=== PATIENT | female | born 1945 | race Caucasian/White ===

== ENCOUNTER 2017-02-06 21:48 | Emergency (ER) | payer OTHER, BC ==
[2017-02-06 22:05] VITALS: BP 168/108; PULSE 79; TEMP 98; BMI 19.5
[2017-02-06] MEDS ORDERED: SODIUM CHLORIDE 1,000 ML IV ONE (22:19)
--- NOTE | 2017-02-06 22:19 | PDOC ---
History of Present Illness - General Chief Complaint: Pain, Acute Stated Complaint: ABDOMINAL PAIN Time Seen by Provider: 02/06/17 22:06 History Source: Patient Exam Limitations: No Limitations - History of Present Illness Initial Comments: 02/06/17 22:50 This is an elderly 71-year-old female who comes in complaining of severe crampy abdominal pain. Patient said pain began approximately 30 this evening. By the time I saw patient said the pain has nearly resolved here in the emergency room. Otherwise patient denied any fever, chills, history of similar pain in the past. Patient denied any nausea, vomiting, diarrhea. Patient did have a normal bowel movement earlier in the day. Patient is otherwise healthy but does have a prior surgical history of appendectomy. PAST MEDICAL HISTORY: no significant history PAST SURGICAL HISTORY: no significant history FAMILY HISTORY: no pertinant history SOCIAL HISTORY: Pt lives with family and is employed. MEDICATIONS: reviewed ALLERGIES: As per nursing notes Review of Systems General: No fevers or chills, no weakness, no weight loss HEENT: No change in vision. No sore throat,. No ear pain CardioVascular: No chest pain or shortness of breath Respiratory:No cough, or wheezing. Gastrointestinal: no nausea, vomitting, diarrhea or constipation, No rectal bleeding Genitourinary: No dysuria, hematuria, or frequency Musculoskeletal: No joint or muscle pain or swelling Neurologic: No headache, vertigo, dizziness or loss of consciousness Psychiatric: nor depression Skin: No rashes or easy bruising Endocrine: no increased thirst or abnormal weight change Allergic: no skin or latex allergy All other systems reviewed and normal Exam: General: Well-nourished well-developed individual, no acute distress HEENT: Throat: Normal, tonsils normal, no erythema or exudate Neck: Supple, no meningeal signs, no lymphadenopathy Eyes::Pupils equal reactive and round, extraocular motion intact Chest: Nontender to palpation Cardiac: S1-S2 normal, regular rate and rhythm, no murmurs rubs or gallops Respiratory: Lungs clear to auscultation bilateral Abdomen: Soft, nondistended, increased bowel sounds, mildly tender to palpation across lower abdomen no guarding or rebound Extremities: Warm, dry, no cyanosis, clubbing, or edema Skin: No rashes Neuro: Alert and oriented x3, nonfocal exam, grossly intact, normal gait Psych: Normal mood and affect 02/06/17 23:12 Assessment and plan: This is a 71-year-old female comes in complaining of crampy abdominal pain. Patient had increased bowel sounds with some very mild tenderness across her lower abdomen otherwise normal. There was no back or flank or CVA tenderness. Patient had a workup in the emergency room which included a normal CBC with normal white count and differential. The chemistry showed a potassium of 3.3 patient was advised to increase her potassium by eating a banana a day for the next week. Her glucose was mildly elevated however was not a fasting glucose. Otherwise her chemistries were unremarkable. Patient was given a copies of her lab work. Patient's pain had completely resolved by the time her workup was complete. Patient's urinalysis did show 1+ blood and I did discuss with her the possibility of a kidney stone. However patient's symptoms had completely resolved and she did not want any further investigation including a CAT scan at this time. I did advise patient that if she developed a fever, the pain came back, or for any reason she was concerned that she should come back and we would get a CAT scan. Patient discharged home will follow-up with her primary care on Wednesday if she still has any symptoms. Past History - Past Medical History Allergies/Adverse Reactions: Allergies Allergy/AdvReac Type Severity Reaction Status Date / Time No Known Allergies Allergy Verified 01/27/15 13:26 Home Medications: Ambulatory Orders Crestor 01/27/15 Fish Oil 01/27/15 Multivit ([facility] Formulary) 01/27/15 Vitamin D 01/27/15 GI Disorders: Yes (DIVERTICULOSIS) HTN: Yes Hypercholesterolemia: Yes - Surgical History Appendectomy: Yes - Psycho/Social/Smoking Cessation Hx Anxiety: No Suicidal Ideation: No Smoking History: Former smoker Have you smoked in the past 12 months: No Information on smoking cessation initiated: No Hx Alcohol Use: No Substance Use Type: None *Physical Exam - Vital Signs Last Vital Signs Temp Pulse Resp BP Pulse Ox 98 F 79 16 168/108 98 02/06/17 22:03 02/06/17 22:03 02/06/17 22:03 02/06/17 22:03 02/06/17 22:03 ED Treatment Course - LABORATORY CBC & Chemistry Diagram: 02/06/17 22:34 02/06/17 22:34 *DC/Admit/Observation/Transfer Diagnosis at time of Disposition: Abdominal pain Qualifiers: Abdominal location: lower abdomen, unspecified Qualified Code(s): R10.30 - Lower abdominal pain, unspecified - Discharge Dispostion Disposition: HOME Condition at time of disposition: Stable Admit: No - Patient Instructions Additional Instructions: If you develop a fever, the pain returns, you develop vomiting with the pain or R concern for any reason you should come back to the emergency room and we will get a CAT scan. Return to the emergency department immediately with ANY new, persistent or worsening symptoms. Continue any medications as previously prescribed by your physician. You should follow up with your primary doctor as soon as possible regarding today's emergency department visit. . Please make sure your doctor reviews the results of your emergency evaluation. Thank you for coming to the Emergency Department today for your care. It was a pleasure to see you today. Please note that your evaluation is INCOMPLETE until you follow-up with your doctor.
[2017-02-06] MEDS ORDERED: HYOSCYAMINE SULFATE 0.125 MG *ODT PO ONE (22:20)
[2017-02-06] MEDS ORDERED: HYOSCYAMINE SULFATE 0.125 MG *ODT ONE (22:26)
[2017-02-06 22:45] LABS: BASOPHIL 0.6 % (0-2.0); EOSINOPHIL 2.3 % (0-4.5); MCH 31.7 pg (25.7-33.7); MCHC 34.2 g/dl (32.0-36.0); MEAN CELL VOLUME 92.7 fl (80-96); MEAN PLT VOLUME 7.7 fl (7.5-11.1); NEUTROPHILS 53.3 % (42.8-82.8); PLATELET COUNT 214 K/MM3 (134-434); RDW 13.1 % (11.6-15.6); WHITE BLOOD COUNT 5.4 K/mm3 (4.0-10.8)
[2017-02-06 22:46] LABS: PH,URINE 7.5 (4.5-8); URINE APPEARANCE Clear; URINE BILIRUBIN Negative (NEGATIVE); URINE BLOOD 1+ (NEGATIVE); URINE GLUCOSE (UA) Negative (NEGATIVE); URINE KETONE Negative (NEGATIVE); URINE LEUK ESTERASE Negative (NEGATIVE); URINE NITRITE Negative (NEGATIVE); URINE PROTEIN Negative (NEGATIVE); URINE UROBILINOGEN 0.2 (0.2-1.0)
[2017-02-06 22:47] LABS: URINE COLOR YELLOW
[2017-02-06 22:57] LABS: ALBUMIN 3.9 g/dl (3.5-5.0); ALK PHOS 58 U/L (32-92); ANION GAP 6 (8-16); BILIRUBIN,TOTAL 0.9 mg/dl (0.2-1.0); CALCIUM 9.3 mg/dl (8.4-10.2); CO2 29 mmol/L (22-28); CREATININE 0.6 mg/dl (0.6-1.3); GLUCOSE,RANDOM 132 mg/dl (74-106); SGOT/AST 30 U/L (10-42); SGPT/ALT 27 U/L (10-40); TOT PROT 6.3 g/dl (6.4-8.3)
== END 2017-02-06 23:19 | disposition home or self-care (01) ==
LOC: FER 21:48
DX: R10.30 Lower abdominal pain, unspecified (principal); I10 Essential (primary) hypertension; Z87.891 Personal history of nicotine dependence
CPT/HCPCS: 36415; 80053; 81003; 83690; 85025; 99283-25

== ENCOUNTER 2017-03-13 17:17 | Emergency (ER) | payer OTHER, BC ==
[2017-03-13] MEDS ORDERED: ACETAMINOPHEN 325 MG TABLET (FP) PO ONE (17:30)
--- NOTE | 2017-03-13 17:30 | PDOC ---
History of Present Illness - General History Source: Patient Exam Limitations: No Limitations - History of Present Illness Initial Comments: 03/13/17 17:34 Patient is a 71 year old female, right hand dominant, with a pmhx of HLD and HTN who presents to the ED with right wrist pain. Patient states that she was gardening as she slipped on a wet rock and fell breaking her fall with her right hand. She now reports right wrist and hand pain as well as difficulty to move the hand. Patient denies any LOC, head trauma or bony deformity. Patient cannot take take NSAIDs due to stomach problems. <Linda Barrera - Last Filed: 03/13/17 17:34> - General History Source: Patient, Old Records Exam Limitations: No Limitations <Enedina Castelan - Last Filed: 03/13/17 18:21> - General Chief Complaint: Injury Stated Complaint: RIGHT WRIST PAIN Time Seen by Provider: 03/13/17 17:22 Past History <Linda Barrera - Last Filed: 03/13/17 17:34> - Past Medical History GI Disorders: Yes (DIVERTICULOSIS) HTN: Yes Hypercholesterolemia: Yes - Surgical History Appendectomy: Yes - Psycho/Social/Smoking Cessation Hx Anxiety: No Suicidal Ideation: No Smoking History: Former smoker Have you smoked in the past 12 months: No Hx Alcohol Use: No Substance Use Type: None <Enedina Castelan - Last Filed: 03/13/17 18:21> - Past Medical History Allergies/Adverse Reactions: Allergies Allergy/AdvReac Type Severity Reaction Status Date / Time No Known Allergies Allergy Verified 03/13/17 17:23 Home Medications: Ambulatory Orders Cholecalciferol (Vitamin D3) [Vitamin D3] 0 unit PO DAILY 03/13/17 Glucosamine Sulfate Dipot Chlr [Glucosamine] 0 mg PO DAILY 03/13/17 Hydrochlorothiazide [Hctz -] 0.5 tab PO DAILY 03/13/17 Multivitamin [Poly-Vitamin] 1 each PO DAILY 03/13/17 [place]-3 Fatty Acids/Fish Oil [Fish Oil 1,000 mg Softgel] 1 each PO DAILY Rosuvastatin Calcium [Crestor] 10 mg PO ASDIR 03/13/17 Ubidecarenone [Coq10] 0 mg PO ASDIR 03/13/17 Review of Systems - Review of Systems Able to Perform ROS?: Yes Comments:: 03/13/17 17:34 CONSTITUTIONAL: Absent: fever, no chills, no fatigue EYES: Absent: visual changes ENT: Absent: ear pain, no sore throat CARDIOVASCULAR: Absent: chest pain, no palpitations RESPIRATORY: Absent: cough, no SOB GI: Absent: abdominal pain, no nausea, no vomiting, no constipation, no diarrhea GENITOURINARY: Absent: dysuria, no frequency, no hematuria MUSCULOSKELETAL: Present: right wrist pain. Absent: back pain, no myalgia SKIN: Absent: rash <Linda Barrera - Last Filed: 03/13/17 17:34> *Physical Exam - Vital Signs Last Vital Signs Temp Pulse Resp BP Pulse Ox 98.3 F 82 18 162/97 100 03/13/17 17:18 03/13/17 17:18 03/13/17 17:18 03/13/17 17:18 03/13/17 17:18 - Physical Exam Comments: 03/13/17 17:35 GENERAL: Well-appearing, well-nourished. No apparent distress. HEENT: Normocephalic, atraumatic. PERRL, EOM intact. CARDIOVASCULAR: Normal S1, S2. Regular rate and rhythm. PULMONARY: Clear to auscultation bilaterally. ABDOMEN: Soft, non-distended, non-tender. EXTREMITIES: (+)Mild soft tissue swelling of the right wrist, Tenderness to palpation over the R radial head, ROM of the right wrist is limited to pain, Sensation is mildly decreased. Radial pulses +2. No gross deformities. SKIN: Warm, dry. No rash NEUROLOGICAL: No focal neurological deficits. <Linda Barrera - Last Filed: 03/13/17 17:34> Medical Decision Making - Medical Decision Making 03/13/17 17:29 71-year-old female with history of hypertension and high cholesterol presents the emergency department with right wrist and hand pain status post mechanical fall on an outstretched hand earlier today. Differential diagnosis includes but is not limited to: Fracture, dislocation, sprain, contusion. Plan: 1. Plain films of right hand and wrist 2. Pain management 3. Observe and reevaluate 03/13/17 18:18 Addendum: Plain films are negative for fracture, dislocation. Will discharge home. Arben wrap for comfort. Tylenol as needed for pain. Follow-up with primary care physician and return to the emergency department if symptoms persist, worsen, or new symptoms arise. <Enedina Castelan - Last Filed: 03/13/17 18:21> *DC/Admit/Observation/Transfer - Attestations Scribe Attestion: 03/13/17 17:37 Documentation prepared by KHURRAM Garrison, acting as medical malpractice paralegal for Enedina Castelan MD. <Linda Barrera - Last Filed: 03/13/17 17:34> - Discharge Dispostion Admit: No - Attestations Physician Attestion: 03/13/17 17:30 I, Dr. Enedina Castelan, attest that the scribes documentation that appears above has been prepared under my direction and personally reviewed by me in its entirety. I confirmed that the note above accurately reflects all work, treatment, procedures, and medical decision-making performed by me. <Enedina Castelan - Last Filed: 03/13/17 18:21> Diagnosis at time of Disposition: Sprain of left wrist - Discharge Dispostion Disposition: HOME Condition at time of disposition: Stable - Referrals Referrals: Catrachito Burris [Primary Care Provider] - - Patient Instructions Printed Discharge Instructions: How to Use a Sling Additional Instructions: You're being treated for a wrist sprain. You may take Tylenol 650-1000 mg as needed for pain every 4 hours. Follow-up with primary care physician and return to the emergency department if your symptoms persist, worsen, or new symptoms arise.
[2017-03-13 17:39] VITALS: BP 162/97; PULSE 82; TEMP 98.3; BMI 19.5
[2017-03-13] MEDS ORDERED: ACETAMINOPHEN 325 MG TABLET (FP) ONE (17:40)
== END 2017-03-13 18:28 | disposition home or self-care (01) ==
LOC: FER 17:17
DX: S63.502A Unspecified sprain of left wrist, initial encounter (principal); W01.0XXA Fall on same level from slipping, tripping and stumbling without subsequent striking against object, initial encounter; Y93.H2 Activity, gardening and landscaping; Y92.007 Garden or yard of unspecified non-institutional (private) residence as the place of occurrence of the external cause; E78.5 Hyperlipidemia, unspecified; I10 Essential (primary) hypertension; Z87.891 Personal history of nicotine dependence
CPT/HCPCS: 73110-TC-RT; 73130-TC-RT; 99282-25

== ENCOUNTER 2018-11-03 14:27 | Emergency (ER) | payer OTHER, BC ==
[2018-11-03 14:56] VITALS: TEMP 98; BMI 20.1
[2018-11-03 15:56] LABS: BASO % 0.4 % (0-2.0); EOS % 1.2 % (0-4.5); HEMATOCRIT 38.6 % (32.4-45.2); MCH 31.5 pg (25.7-33.7); MCHC 33.8 g/dl (32.0-36.0); MEAN CELL VOLUME 93.3 fl (80-96); MEAN PLT VOLUME 7.3 fl (7.5-11.1); MONO % 9.5 % (3.8-10.2); NEUT % 55.9 % (42.8-82.8); PLATELET COUNT 276 K/MM3 (134-434); RBC 4.13 M/mm3 (3.60-5.2); RDW 12.4 % (11.6-15.6); WHITE BLOOD COUNT 4.2 K/mm3 (4.0-10.8)
--- NOTE | 2018-11-03 16:00 | PDOC ---
Documentation entered by Radu Anguiano SCRIBE, acting as scribe for Maik Lu MD. Maik Lu MD: This documentation has been prepared by the Silvio aviles Nirvannie, SCRIBE, under my direction and personally reviewed by me in its entirety. I confirm that the documentation accurately reflects all work, treatment, procedures, and medical decision making performed by me. History of Present Illness - General Chief Complaint: Diarrhea Stated Complaint: DIARRHEA Time Seen by Provider: 11/03/18 14:51 History Source: Patient Exam Limitations: No Limitations - History of Present Illness Initial Comments: 11/03/18 15:27 The patient is a 73 year old female, with a significant past medical history of hypertension and hyperlipidemia, who presents to the emergency department with, generalized weakness and chest discomfort described as a fluttering sensation. As per patient, a week ago she went to see her GI doctor at [facility] for her chronic LQ pain at which time he prescribed her Levsin (taken multiple times in the past without abnormal side effects), she notes taking it for 1 day then began feeling a sensation of confusion, dry mouth, dizziness, and urinary retention. Patient went to see her doctor the following day at which time her medications were stopped and she received urinary catheterization (negative urinalysis). Approximately 5 days following this episode, she notes constipation for which she took 300mg Mg (OTC, taken multiple times in the past without abnormal side effects) that onset 3 days of 4-5 episodes of watery diarrhea concluding last night. She endorses seeing her PCPs partner yesterday for her symptoms, however, today she had a soft bowel movement with associated generalized weakness, lightheadedness, and fluttering chest discomfort prompting her arrival to the ED. She denies any focal weakness or focal changes in strength/sensation. She denies any blurred vision or changes in her speech. She denies recent fevers, chills, headache or dizziness. She denies recent nausea or vomiting. She denies recent dysuria, frequency, urgency or hematuria. She denies recent chest pain or shortness of breath. Allergies: NKDA Past surgical history: Appendectomy and rectal papilla removal. Social history: Quit smoking 35 years ago. Usually walks approximately 4 mi/d. Last visited to [facility] tech 2 months ago without any pertinent findings. Denies EtOH use and recreational drug use. Primary Care Physician: Dr. Kim Past History - Past Medical History Allergies/Adverse Reactions: Allergies Allergy/AdvReac Type Severity Reaction Status Date / Time No Known Allergies Allergy Verified 11/03/18 14:47 Home Medications: Ambulatory Orders Cholecalciferol (Vitamin D3) [Vitamin D3] 2,000 unit PO DAILY 03/13/17 Hydrochlorothiazide [Hctz -] 1 tab PO DAILY 03/13/17 [place]-3 Fatty Acids/Fish Oil [Fish Oil 1,000 mg Softgel] 1 each PO DAILY Rosuvastatin Calcium [Crestor] 10 mg PO TUTH 03/13/17 Hyoscyamine Odt [Levsin Odt -] 0.125 mg PO PRN 09/10/17 Glucosam/Chond-Msm1/C/Tanner/Bor [Wfcbhsj-Qdpsx-WSV Complex Cplt] 1 each PO DAILY 11/03/18 Multivit-Min/Iron/Folic/Lutein [Centrum Silver Women Tablet] 1 each PO DAILY COPD: No GI Disorders: Yes (DIVERTICULOSIS) HTN: Yes Hypercholesterolemia: Yes - Surgical History Appendectomy: Yes - Suicide/Smoking/Psychosocial Hx Smoking History: Never smoked Have you smoked in the past 12 months: No Hx Alcohol Use: No Drug/Substance Use Hx: No Substance Use Type: None Review of Systems - Review of Systems Able to Perform ROS?: Yes Comments:: 11/03/18 15:27 CONSTITUTIONAL: Present: Generalized Weakness No reported: Fever, Chills, Diaphoresis, Loss of Appetite HEENT: No reported: Rhinorrhea, Nasal Congestion, Throat Pain, Throat Swelling, Difficulty Swallowing, Mouth Swelling, Ear Pain, Eye Pain, Visual Changes CARDIOVASCULAR: Present: Lightheadedness, chest fluttering No reported: Chest Pain, Syncope, Palpitations, Peripheral Edema RESPIRATORY: No reported: Cough, Shortness of Breath, SOB with Exertion, Orthopnea, Wheezing , Stridor, Hemoptysis GASTROINTESTINAL: Present: Diarrhea. No reported: Abdominal pain, Abdominal Distension, Nausea, Vomiting, Melena, Hematochezia GENITOURINARY: No reported: Dysuria, Frequency, Urgency, Hesitancy, Flank Pain, Genital Pain MUSCULOSKELETAL: No reported: Myalgia, Arthralgia, Joint Swelling, Back pain, Neck Pain SKIN: No reported: Rash, Itching, Pallor HEMEATOLOGIC/IMMUNOLOGIC: No reported: Easy Bleeding, Easy Bruising, Lymphadenopathy, Frequent infections ENDOCRINE: No reported: Unexplained Weight Gain, Unexplained Weight Loss, Heat Intolerance , Cold Intolerance NEUROLOGIC: No reported: Headache, Focal Weakness, Paresthesias, Vertigo, Unsteady Gait, Seizure, Mental Status Changes, Incontinence PSYCHIATRIC: No reported: Anxiety, Depression All Other Systems: Reviewed and Negative *Physical Exam - Vital Signs Last Vital Signs Temp Pulse Resp BP Pulse Ox 98.0 F 75 16 150/95 100 11/03/18 14:41 11/03/18 14:41 11/03/18 14:41 11/03/18 14:41 11/03/18 14:41 - Physical Exam Comments: 11/03/18 15:25 GENERAL: The patient is awake, alert, and fully oriented, Nontoxic - in no acute distress. HEAD: Normocephalic, atraumatic. EYES: extraocular movements intact, sclera anicteric, conjunctiva clear. ENT: Normal voice, Moist mucous membranes. NECK: Normal range of motion, supple LUNGS: Breath sounds equal, clear to auscultation bilaterally. No wheezes, no rhonchi, no rales. HEART: Regular rate and rhythm, normal S1 and S2 without murmur, rub or gallop. ABDOMEN: Soft, nontender, No guarding, no rebound. . No CVA tenderness EXTREMITIES: Normal range of motion, no edema. NEUROLOGICAL: No facial assymetry, Normal speech, PSYCH: Normal mood, normal affect. SKIN: Warm, Dry, normal turgor, Heart Score/ECG Review - ECG Impressions Comment:: 11/03/18 16:32 Twelve-lead EKG was performed and reviewed by me. There is normal sinus rhythm with a normal rate. Rate of 73 The axis is normal. The intervals are normal. There is normal R wave progression There are no ST or T wave abnormalities. Impression: Normal twelve-lead EKG ED Treatment Course - LABORATORY CBC & Chemistry Diagram: 11/03/18 15:35 11/03/18 15:35 Medical Decision Making - Medical Decision Making 11/03/18 15:15 73y F hx of htn, HL persents with generalized weakness after taking Levcin prescribed by GI c/b urinary retention that resolved after catherization, then followed by episode of constipation for which she took magnesium for with profuse nb diarrhea x 3 days which has sence resolved but pt endorses generalied fatigue and malaise w/o f/c, dysuria, bloody stool, abd pain, cp, sob , lightheadedness, sullivan - pt does endorse a mild 'fluttering' in her chest. ddx - metabolic derangement, occult uti will obtain ekg to screen for acs/arrythmia labs to r/o metabolic dernagemnt UA to r/o UTI 11/03/18 16:36 labs reviewed K slightly low - may be due to diarrhea will replete with 20mg PO maura dc with supportive caer and PMD fu I discussed the physical exam findings, ancillary test results and final diagnoses with the patient. I answered all of the patient's questions. The patient was satisfied with the care received and felt comfortable with the discharge plan and treatment plan. The patient will call their primary care physician within 24 hours to arrange follow-up and will return to the Emergency Department with any new, persistent or worsening symptoms. *DC/Admit/Observation/Transfer Diagnosis at time of Disposition: Generalized weakness, Hypokalemia - Discharge Dispostion Disposition: HOME Condition at time of disposition: Improved Decision to Admit order: No - Referrals Referrals: Francis Kim MD [Primary Care Provider] - - Patient Instructions Printed Discharge Instructions: DI for Diarrhea and Traveler's Diarrhea -- Adult Additional Instructions: Return to the emergency department immediately with ANY new, persistent or worsening symptoms. Continue eating/drinking regularly. You MUST call and follow up with your doctorin 3-4 days for further evaluation of your symptoms. Results were discussed with you. Please make sure your doctor reviews the results of your emergency evaluation. Print Language: YORUBA - Post Discharge Activity
[2018-11-03 16:09] LABS: ALBUMIN 3.9 g/dl (3.4-5.0); ALK PHOS 65 U/L (45-117); ANION GAP 9 MMOL/L (8-16); BILIRUBIN,TOTAL 0.9 mg/dl (0.2-1); BLOOD UREA NITROGEN 10 mg/dl (7-18); CALCIUM 9.4 mg/dl (8.5-10); CHLORIDE 98 mmol/L (98-107); CO2 28 mmol/L (21-32); GLUCOSE,RANDOM 110 mg/dl (74-106); MAGNESIUM 1.9 mg/dL (1.8-2.4); POTASSIUM 3.4 mmol/L (3.5-5.1); SGOT/AST 37 U/L (15-37); SGPT/ALT 29 U/L (13-61); SODIUM 135 mmol/L (136-145); TOT PROT 6.6 g/dl (6.4-8.2)
[2018-11-03 16:12] LABS: CREATININE < 0.6 mg/dl (0.55-1.3)
[2018-11-03] MEDS ORDERED: POTASSIUM CHLORIDE TABS 20 MEQ TABLET.ER (FP) PO ONE ×2 (16:30→16:32)
[2018-11-03 16:32] VITALS: BP 139/97; PULSE 65
--- NOTE | 2018-11-04 10:28 | EKG ---
Test Reason : Blood Pressure : / mmHG Vent. Rate : 073 BPM Atrial Rate : 073 BPM P-R Int : 194 ms QRS Dur : 064 ms QT Int : 388 ms P-R-T Axes : 062 080 004 degrees QTc Int : 427 ms SINUS RHYTHM WITH PREMATURE ATRIAL COMPLEXES NONSPECIFIC T WAVE ABNORMALITY Confirmed by NHUNG VALLE MD ([id number]) on 11/04/2018 10:28:03 AM Referred By: Radha NICHOLE Confirmed By:NHUNG VALLE MD
== END 2018-11-03 16:38 | disposition home or self-care (01) ==
LOC: FER 14:27
DX: E87.6 Hypokalemia (principal); R53.1 Weakness; I10 Essential (primary) hypertension; E78.5 Hyperlipidemia, unspecified; E78.00 Pure hypercholesterolemia, unspecified
CPT/HCPCS: 36415; 80053; 81003; 81015; 83735; 85025; 93005; 99283-25

== ENCOUNTER 2022-09-02 12:13 | Emergency (ER) | payer OTHER, BC ==
[2022-09-02] MEDS ORDERED: diphenhydrAMINE HCL 25 MG CAPSULE (FP) PO ONE ×2 (12:44→12:51)
[2022-09-02 12:47] VITALS: BP 135/78; PULSE 72; RESP 16; TEMP 98; BMI 20.2
== END 2022-09-02 13:07 | disposition home or self-care (01) ==
LOC: FER 12:13
DX: L03.114 Cellulitis of left upper limb (principal)
CPT/HCPCS: 99283-25

== ENCOUNTER 2022-10-13 15:29 | Emergency (ER) | payer OTHER, BC ==
[2022-10-13 16:05] VITALS: BP 177/102; PULSE 92; RESP 8; TEMP 97.8; BMI 22.8
[2022-10-13 17:34] LABS: ALBUMIN 3.8 g/dl (3.4-5.0); BILIRUBIN,TOTAL 0.9 mg/dl (0.2-1); CALCIUM 9.1 mg/dl (8.5-10); CREATININE 0.6 mg/dl (0.55-1.3); TOT PROT 6.3 g/dl (6.4-8.2)
[2022-10-13] MEDS ORDERED: POTASSIUM CHLORIDE TABS 20 MEQ TABLET.ER (FP) PO ONE ×2 (17:40→17:51)
== END 2022-10-13 18:06 | disposition home or self-care (01) ==
LOC: FER 15:29
DX: R33.9 Retention of urine, unspecified (principal)
CPT/HCPCS: 36415; 80053; 81003; 81015; 87086; 99283-25

== ENCOUNTER 2023-05-03 17:58 | Emergency (ER) | payer OTHER, BC ==
[2023-05-03 18:15] VITALS: PULSE 83; RESP 16; TEMP 98.1; BMI 19.8
[2023-05-03] MEDS ORDERED: MAG HYDROX/AL HYDROX/SIMETH 30 ML UNIT-DOSE CUP PO ONE (18:44)
[2023-05-03] MEDS ORDERED: MAG HYDROX/AL HYDROX/SIMETH 30 ML UNIT-DOSE CUP ONE (18:51)
[2023-05-03 19:08] LABS: HEMATOCRIT 39.3 % (32.4-45.2); HEMOGLOBIN 13.2 G/dL (10.7-15.3); MCH 31.6 pg (25.7-33.7); MCHC 33.6 g/dl (32.0-36.0); MEAN CELL VOLUME 93.9 fl (80-96); MEAN PLT VOLUME 7.4 fl (7.5-11.1); PLATELET COUNT 200.9 10^3/uL (134-434); RBC 4.18 10^6/uL (3.60-5.2); RDW 14.7 % (11.6-15.6); WHITE BLOOD COUNT 5.3 10^3/uL (4.0-10.8)
[2023-05-03 19:18] LABS: INR 0.96 (0.83-1.09); PROTHROMBIN TIME (PATIENT) 11.1 SEC (9.7-13.0)
[2023-05-03 19:20] LABS: ACTIVATED PTT 31.6 SECONDS (25.2-36.5)
[2023-05-03 19:23] LABS: PLATELET ESTIMATE ADEQUATE
[2023-05-03 19:27] VITALS: BP 174/101
[2023-05-03 20:46] LABS: POTASSIUM 3.3 mmol/L (3.5-5.1)
[2023-05-03 20:48] LABS: ALBUMIN 3.5 g/dl (3.4-5.0); BLOOD UREA NITROGEN 11.1 mg/dL (7-18); CALCIUM 8.9 mg/dL (8.5-10.1)
[2023-05-03 20:51] LABS: CREATININE 0.6 mg/dL (0.55-1.3)
[2023-05-03 20:53] LABS: BILIRUBIN,TOTAL 0.5 mg/dL (0.2-1); TOT PROT 6.5 g/dl (6.4-8.2)
== END 2023-05-03 19:29 | disposition left against medical advice (07) ==
LOC: FER 17:58
DX: R07.9 Chest pain, unspecified (principal); R06.02 Shortness of breath; F41.9 Anxiety disorder, unspecified; R19.7 Diarrhea, unspecified
CPT/HCPCS: 36415; 71046-TC-FY; 80053; 84484; 85027; 85610; 85730; 93005; 99285-25

== ENCOUNTER 2024-02-12 09:55 | Emergency (ER) | payer OTHER, BC ==
[2024-02-12 10:01] VITALS: TEMP 98.1; BMI 20.1
[2024-02-12] MEDS ORDERED: ACETAMINOPHEN INJECTION 100 ML IVPB ONE (10:51)
[2024-02-12] MEDS ORDERED: FAMOTIDINE 20 MG/50 ML IVPB 20 MG/50 ML MG IVPB ONE (10:51)
[2024-02-12 10:54] LABS: HEMATOCRIT 40.7 % (32.4-45.2); HEMOGLOBIN 13.5 G/dL (10.7-15.3); MCH 31.4 pg (25.7-33.7); MCHC 33.1 g/dl (32.0-36.0); MEAN CELL VOLUME 94.9 fl (80-96); PLATELET COUNT 182.4 10^3/uL (134-434); RBC 4.29 10^6/uL (3.60-5.2); RDW 14.8 % (11.6-15.6); WHITE BLOOD COUNT 4.2 10^3/uL (4.0-10.8)
[2024-02-12] MEDS: FAMOTIDINE 20 MG/50 ML IVPB 20 MG/50 ML MG IVPB ONE (10:58)
[2024-02-12 11:04] LABS: ALBUMIN 4.1 g/dl (3.4-5.0); ALK PHOS 47 U/L (45-117); ANION GAP 8 mmol/L (4-13); CHLORIDE 104 mmol/L (98-107); CO2 26 mmol/L (21-32); CREATININE 0.7 mg/dl (0.6-1.3); GLUCOSE,RANDOM 107 mg/dl (74-106); POTASSIUM 4.2 mmol/L (3.5-5.1); SGOT/AST 20 U/L (15-37); SGPT/ALT 18 U/L (7-52); SODIUM 138 mmol/L (136-145); TOT PROT 6.2 g/dl (6.4-8.2)
[2024-02-12] MEDS: ACETAMINOPHEN 1000 MG/100 ML BAG IVPB ONE (11:08)
[2024-02-12 11:32] LABS: PLATELET ESTIMATE ADEQUATE
[2024-02-12 11:33] VITALS: BP 142/82; PULSE 58; RESP 16
== END 2024-02-12 11:55 | disposition home or self-care (01) ==
LOC: FER 09:55
PROC: 3E033GC Introduction of Other Therapeutic Substance into Peripheral Vein, Percutaneous Approach (ICD-10-PCS; principal; 2024-02-12)
PROC: 3E033NZ Introduction of Analgesics, Hypnotics, Sedatives into Peripheral Vein, Percutaneous Approach (ICD-10-PCS; 2024-02-12)
DX: R07.2 Precordial pain (principal)
CPT/HCPCS: 36415; 71045-TC-FY; 80053; 84484; 85027; 93005; 99285-25; J0131

== ENCOUNTER 2025-02-17 19:18 | Emergency (ER) | payer OTHER, BC ==
[2025-02-17 19:29] VITALS: BP 166/79; PULSE 66; RESP 16; TEMP 98.3; BMI 21.3
[2025-02-17] MEDS ORDERED: ACETAMINOPHEN INJECTION 100 ML ONE (19:31)
[2025-02-17] MEDS ORDERED: ONDANSETRON 4 MG/2 ML VIAL ONE (19:31)
[2025-02-17] MEDS: ONDANSETRON 4 MG/2 ML VIAL IVPUSH ONE (19:46)
[2025-02-17] MEDS: ACETAMINOPHEN 1000 MG/100 ML BAG IVPB ONE (19:46)
[2025-02-17 20:09] LABS: MCHC 33.1 g/dl (32.2-35.5); MEAN CELL VOLUME 93.0 fl (79.4-94.8); MEAN PLT VOLUME 9.4 fl (9.4-12.3); RDW 13.6 % (12.4-16.6)
[2025-02-17 20:17] LABS: ALK PHOS 64.0 U/L (45-117); CO2 25.0 mmol/L (21-32); CREATININE 0.5 mg/dl (0.6-1.3); GLUCOSE,RANDOM 143.0 mg/dl (74-106); SGOT/AST 39.0 U/L (15-37); SGPT/ALT 33.0 U/L (7-52); TOT PROT 6.0 g/dl (6.4-8.2)
[2025-02-17 22:04] LABS: HIV INTERPRETATION NEGATIVE (NEGATIVE)
[2025-02-17 22:08] LABS: HCV DIAGNOSTIC IN-HOUSE W/RFLX NON-REACTIVE (NONREACTIVE)
== END 2025-02-17 21:43 | disposition home or self-care (01) ==
LOC: FER 19:18
PROC: 3E033NZ Introduction of Analgesics, Hypnotics, Sedatives into Peripheral Vein, Percutaneous Approach (ICD-10-PCS; principal; 2025-02-17)
PROC: 3E033GC Introduction of Other Therapeutic Substance into Peripheral Vein, Percutaneous Approach (ICD-10-PCS; 2025-02-17)
DX: U07.1 COVID-19 (principal); R11.0 Nausea; R53.81 Other malaise; R50.9 Fever, unspecified
CPT/HCPCS: 36415; 80053; 85025; 86803; 87389; 99284-25